=== PATIENT | female | born 2000 | race Caucasian/White ===

== ENCOUNTER 2023-12-15 21:15 | Outpatient (REF) | payer OTHER, SELFPAY | END 2023-12-15 21:16 | disposition home or self-care (01) | LOC: LAB 21:15 | PROVIDERS: Visit Provider Physician Assistant | DX: Z01.419 Encounter for gynecological examination (general) (routine) without abnormal findings (principal) | CPT/HCPCS: G0145 ==

== ENCOUNTER 2024-12-20 19:54 | Outpatient (REF) | payer OTHER, SELFPAY ==
--- OUTSIDE RECORDS SUMMARY | 2024-12-20 20:02 | XMS_ITS | CCD ---
Author Organization [facility] Care Team Providers Care Dexigraph Operator Name Role Phone Jose David Sadler Primary Care Provider PILAR VILLAFUERTE Attending Unav ailable JOSE DAVID SADLER Primary Care Unavailable PILAR VILLAFUERTE Attending Unav JOSE DAVID Cruz Primary Care Unavailable JOSE DAVID SADLER Admitting Unavailable PILAR VILLAFUERTE Attending Unav JOSE DAVID Cruz Referring Unavailable JOSE DAVID SADLER. Primary Care Unavailable PILAR VILLAFUERTE Attending Unav ailable JOSE DAVID SADLER Primary Care Unavailable ANA, ANA Attending Unavailable ANA LAGUNA Consulting Unavailable ANA ANA Admitting Unavailable [place] Primary Care Provider Arjun Woodall Unavailable Ana Laguna Primary Care Provider JOSE DAVID SADLER Referring Unavailable RICODOMEE Deb Primary Care Unavailable SUSAN, TOD Attending Unavailable ROSIPKO, JOSE DAVID K Referring Unavailable RICO, KIMBERLY G Primary Care Unavailable ANA, ANA F Primary Care Unavailable SUSAN, TOD Referring Unavailable ANA, ANA F Primary Care Unavailable SUSAN, TOD Referring Unavailable ANA, ANA F Primary Care Unavailable SUSAN, TOD Referring Unavailable ANA, ANA F Primary Care Unavailable SUSAN, TOD Referring Unavailable ANA, ANA F Primary Care Unavailable SUSAN, TOD Referring Unavailable ANA, ANA F Primary Care Unavailable SUSAN, TOD Referring Unavailable ANA, ANA F Primary Care Unavailable SUSAN, TOD Referring Unavailable ANA LAGUNA Primary Care Unavailable CANDIS DAVIS Referring Unavailable Jennifer Pastrana MD Primary Care Provider Lizeth Emanuel NP Unavailable Cyndy De La Torre Unavailable ELMER CHARLES Attending Unavailab CYNDY De Jesus Attending Unavailable ILNAA CADET Attending Unavailable JONATAN PADILLA Attending Unavailable ILNAA CADET Referring Unavailable KIMBERLY RANDOLPH Primary Care Unavailable Kimberly Randolph DO Primary Care Provider Allergies Allergy Classification Reported Allergen(s) Allergy Type Date of Onset Reaction(s) Facility (7 sources) Gluten Allergy to substance 3 Rash [facility] (7 sources) Octacosanol Propensity to adverse reactions 4 Runny nose, Other (See Comments) [facility] Medications Current Medications Medication Drug Class(es) Dates Sig (Normalized) Sig (Original) adapalene 0.003 mg/mg topical gel (8 sources) Retinoid Start: 2023 adapalene (Differin) 0.3 % gel USE 1 APPLICATION TOPICALLY EVERY NIGHT AT BEDTIME 2023 Active [id number] 200 actuat albuterol 0.09 mg/actuat metered dose inhaler (14 sources) beta2-Adrenergic Agonist take 2 puff(s) by inhalation every four hours for wheezing albuterol HFA 90 mcg/act inhaler Inhale 2 puffs every 4 (four) hours if needed for wheezing Active take 2 puff(s) by in halation every six hours as needed for wheezing albuterol (PROVENTIL HFA;VENTOLIN HFA) 9 0 mcg/actuation inhaler Inhale 2 puffs every 6 (six) hours as needed for wheezing. Active citric acid 75 mg/ml / magnesium oxide 21.9 mg/ml / picosulfate sodium 0.0625 mg/ml oral solution (2 sources) Calculi Dissolution Agent, Anti-coagulant Start: 04-23-2021 Clenpiq 10-3.5-12 MG-GM -GM/160ML 160ml at 3pm, 160ml at 9pm the day prior to colonoscopy Orally BID for 1 days Mar, Active Ethinyl Estradiol / norgestimate (16 sources) Progestin, Estrogen Start: 12-20-2024 End: 12-20-2025 take 1 tablet by mouth once daily norgestimate-ethi nyl estradiol (Tri-Sprintec) 0.18/0.215/0.25 MG-35 MCG tablet Indications: Encounter for control pills maintenance Take 1 tablet by mouth 1 (one) time each day at the same time 90 tablet 3 12/20/2024 12/20/2025 Active Start: 12-15-2023 End: 12-20-2024 take 1 tablet by mouth once daily norgestimate-ethinyl estradiol (Tri-Sprintec) 0.18/0.215/0.25 MG-35 MCG tablet Indications: Encounter for control pills maintenance Take 1 tablet by mouth 1 (one) time each day at the same time 90 tablet 3 12/15/2023 12/20/2024 Discontinued (Reorder) Start: 12-15-2023 take 1 tablet by zhane once daily norgestimate-ethinyl estradiol (Tri-Sprintec) 0.18/0.215/0.25 MG-35 MCG tablet Indications: Encounter for control pills maintenance Take 1 tablet by mouth 1 (one) time each day at the same time 90 tablet 3 12/15/2023 Active Start: 12-15-2023 End: 12-14-2024 take 1 tablet by mouth once daily norgestimate-ethinyl estradiol (Tri-Sprintec) 0.18/0.215/0.25 MG-35 MCG tablet Indications: Encounter for control pills maintenance Take 1 tablet by mouth 1 (one) time each day at the same time 90 tablet 3 12/15/2023 12/14/2024 Active Start: 11-14-2019 TRI-SPRINTEC, 28, 0.18/0.215/0.25 mg-35 mcg (28) per tablet 11/14/2019 Active Start: 11-14-2019 TRI-SPRINTEC, 28, 0.18/0.215/0.25 mg-35 mcg (28) per tablet Start: 08-10-2019 take 1 tablet by zhane th once daily Tri-Sprintec, 28, 0.18/0.215/0.25 mg-35 mcg (28) per tablet Take 1 Tabminder by mouth daily . 0 08/10/2019 Active naloxone hydrochloride 40 mg/ml nasal spray (2 sources) Opioid Antagonist Start: 07-08-2023 naloxone (NARCAN) 4 mg/actuation spray,non-aerosol nasal spray Administer 1 spray (4 mg total) into alternating nostrils as needed for opioid reversal. 1 each 0 07/08/2023 Active naloxone (NARCAN) 4 mg/actuation spray,non-aerosol nasal spray (3 sources) Start: 07-08-2023 naloxone (NARCAN) 4 mg/actuation spray,non-aerosol nasal spray Administer 1 spray (4 mg total) into alternating nostrils as needed for opioid reversal. 1 each 07/08/2023 Active NONFORMULARY (2 sources) take 1 tablet by mouth once daily NONFORMULARY Take 1 tablet by mouth daily unkown control pill 0 Active Completed/Discontinued Medications Medication Drug Class(es) Dates Sig (Normalized) Sig (Original) azithromycin 500 mg oral tablet (7 sources) Macrolide Antimicrobial Start: 12-16-2023 End: 12-20-2024 take 1 tablet by mouth once daily azithromycin (Zithromax) 500 MG tablet Indications: Bacterial infection due to mycoplasma Day 1: Take 2 tablets PO onetime dose; Day 2,3,4: Take 1 tablet daily 5 tablet 12/16/2023 12/20/2024 Discontinued (Other) fluconazole 100 mg oral tablet (7 sources) Azole Antifungal Start: 12-15-2023 End: 12-20-2024 fluconazole (Diflucan) 100 MG tablet Indications: Yeast infection Take 1 tab by mouth today. Repeat in 48 hours. 2 tablet 12/15/2023 12/20/2024 Discontinued (Other) 60 actuat fluticasone propionate 0.25 mg/actuat / salmeterol 0.05 mg/actuat dry powder inhaler (7 sources) Corticosteroid, beta2-Adrenergic Agonist Start: 11-29-2023 End: 12-20-2024 take 1 puff(s) by inhalation in the morning Fluticasone-Salmet isha (Advair Diskus) 250-50 MCG/ACT aerosol powder Indications: Mild intermittent asthma without complication (CMS/HCC) Inhale 1 puff in the morning and 1 puff before bedtime. 60 each 1 11/29/2023 12/20/2024 Discontinued (Other) metoprolol tartrate 25 mg oral tablet (5 sources) beta-Adrenergic Jahaira Start: 05-30-2024 End: 12-20-2024 take 1 tablet by mouth in the morning metoprolol tartrate (Lopressor) 25 MG tablet Indications: PVC (premature ventricular contraction) Take 1 tablet (25 mg) by mouth in the morning and 1 tablet (25 mg) before bedtime. 180 tablet 05/30/2024 12/20/2024 Discontinued (Other) Problems Active Problems Problem Classification Problem Date Documented Da te Episodic/Chronic Abdominal pain (4 sources) Abdominal pain; Translations: [Unspecified abdominal pain] Onset: 04-23-2021 Resolved: 04-23-2021 Episodic Allergic reactions (7 sources) Flexural eczema; Translations: [Flexural eczema] Onset: 05-03-2023 05-03-2023 Chronic Cardiac dysrhythmias (3 sources) Ventricular premature depolarization; Translations: [Multiple premature ventricular complexes] Onset: 07-06-2024 07-06-2024 Chronic Conditions associated with dizziness or vertigo (6 sources) Dizziness; Translations: [Dizziness and giddiness] Onset: 07-06-2024 05-17-2024 Episodic Contraceptive and procreative management (2 sources) Oral contraception status; Translations: [Encounter for surveillance of contraceptive pills] 12-20-2024 Episodic Genitourinary symptoms and ill-defined conditions (7 sources) Urinary incontinence; Translations: [Other specified urinary incontinence] Onset: 05-03-2023 05-03-2023 Chronic Immunizations and screening for infectious disease (4 sources) Contact with and (suspected) exposure to other viral communicable diseases; Translations: [CONTCT EXPS OTH VIRL COMMUNICABL DZ] Onset: 06-15-2020 Episodic Menstrual disorders (7 sources) Menometrorrhagia; Translations: [Excessive and frequent menstruation with irregular cycle] Onset: 05-03-2023 05-03-2023 Chronic Other disorders of stomach and duodenum (2 sources) Indigestion; Translations: [Functional dyspepsia] Episodic Other gastrointestinal disorders (10 sources) Irritable bowel syndrome; Translations: [Irritable bowel syndrome without diarrhea] Onset: 05-03-2023 05-03-2023 Chronic Other gastrointestinal disorders (1 source) Celiac disease; Translations: [Celiac disease] Chronic Other gastrointestinal disorders (1 source) Irritable bowel syndrome without diarrhea Onset: 02-09-2022 Resolved: 02-09-2022 Chronic Other gastrointestinal disorders (1 source) Celiac disease Onset: 02-09-2022 Resolved: 02-09-2022 Chronic Other gastrointestinal disorders (3 sources) Altered bowel function; Translations: [Change in bowel habit] Episodic Other nervous system disorders (7 sources) Chronic pain; Translations: [Other chronic pain] Onset: 05-03-2023 05-03-2023 Chronic Other nervous system disorders (2 sources) Paresthesia of lower extremity; Translations: [Paresthesia of lower extremity] Episodic Other nutritional; endocrine; and metabolic disorders (7 sources) Intolerance to lactose; Translations: [Lactose intolerance, unspecified] Onset: 05-03-2023 05-03-2023 Chronic Other nutritional; endocrine; and metabolic disorders (3 sources) Weight loss; Translations: [Abnormal weight loss] Episodic Other upper respiratory disease (7 sources) Chronic rhinitis; Translations: [Chronic rhinitis] Onset: 05-03-2023 05-03-2023 Chronic Residual codes; unclassified (1 source) Other specified postprocedural states; Translations: [Other specified postprocedural states] Onset: 07-22-2023 Episodic Spondylosis; intervertebral disc disorders; other back problems (20 sources) Other intervertebral disc displacement, lumbar region; Translations: [Lumbar spondylosis] Onset: 02-01-2020 Chronic Unclassified (1 source) Suture / Staple Removal Onset: 07-22-2023 Unclassified (1 source) New Patient Onset: 07-06-2024 Past or Other Problems Problem Classification Problem Date Documented Da te Episodic/Chronic Other disorders of stomach and duodenum (2 sources) Functional dyspepsia Onset: 05-30-2021 Resolved: 02-09-2022 Episodic Other gastrointestinal disorders (1 source) Change in bowel habit; Translations: [Change in bowel habits R19.4] Onset: 04-23-2021 Resolved: 04-23-2021 Episodic Other gastrointestinal disorders (7 sources) Constipation; Translations: [Constipation, unspecified] Onset: 05-03-2023 05-03-2023 Episodic Other nervous system disorders (7 sources) Paresthesia of left lower limb; Translations: [Paresthesia of skin] Onset: 05-03-2023 05-03-2023 Episodic Other nutritional; endocrine; and metabolic disorders (1 source) Abnormal weight loss; Translations: [Weight loss R63.4] Onset: 04-23-2021 Resolved: 04-23-2021 Episodic Residual codes; unclassified (1 source) History of lumbar discectomy; Translations: [Other specified postprocedural states] 07-22-2023 Episodic Skin and subcutaneous tissue infections (7 sources) Impetigo; Translations: [Impetigo, unspecified] Onset: 05-03-2023 05-03-2023 Episodic Spondylosis; intervertebral disc disorders; other back problems (20 sources) Spinal stenosis, lumbar region without neurogenic claudication; Translations: [Acute back pain with sciatica] Onset: 03-20-2020 Episodic Results Test Name Value Interpretation Reference Range Facility POCT EKGon 07-06-2024 [facility] MR LUMBAR SPINE WO CONTRASTo n 05-21-2023 MR LUMBAR SPINE WO CONTRAST EXAM: MR LUMBAR SPINE WO CONTRAST History: Low back pain Technique: Multiplanar multisequence MRI of the lumbar spine was obtained without intravenous contrast. Comparison: MRI of the lumbar spine August 15, 2019 Findings: The conus medullaris ends normally. The alignment of the lumbar spine is anatomic. The vertebral body heights are well maintained. There is no aggressive bone marrow signal abnormality. Disc desiccation and mild intervertebral height loss at L4-L5. T11-T12: Tiny left central disc protrusion without significant change. No neural foraminal or spinal canal stenosis. T12-L1: No significant disc bulge. No neural foraminal or spinal canal stenosis. L1-L2: No significant disc bulge or high-grade spinal canal or neuroforaminal stenosis. L2-L3: No significant disc bulge or high-grade spinal canal or neuroforaminal stenosis. L3-L4: Small disc bulge. No neural foraminal or spinal canal stenosis. L4-L5: Small disc bulge with superimposed central disc protrusion. Mild facet arthropathy and ligamentum flavum thickening. Moderate spinal canal stenosis. Moderate bilateral neural foraminal stenosis. L5-S1: Small disc bulge with tiny central disc protrusion. Mild facet arthropathy. Moderate bilateral neural foraminal stenosis. No spinal canal stenosis. Visualized paravertebral soft tissues appear within normal limits. IMPRESSION: Degenerative changes of the lumbar spine as detailed, progressed from prior examination. ELECTRONICALLY SIGNED BY: Tono Patterson DO Normal Not Available HCG,Urineon 05-22-2021 Beta HCG ( test) Ql (U) Negative Normal [facility] Comment on above: Result Comment: PERFORMED BY: [place] [address] PATHOLOGIST WINDOWS SOFTWARE ENGINEER OTILIA BRIGHT M.D. Performed By: #### U HCG #### [facility] [address] 05-22-2021 L -- ---- Specimen: [id number] Received: 05/22/21 Status: TODD Amador Num: [id number] Spec Type: Surgical Subm Dr: Arjun Woodall MD Tissues: A Small Intestine - Biopsy/Polyp (SMALL BOWEL BX) Procedures: HE Stain/2, Gross/Micro L4 ---- Patient Age/Sex Location Account Attending Physician ---- Aranza Doyle 20/F [id number] Arjun Woodall MD ---- SPEC NUM: [id number] RECD: 05/22/21 STATUS: TODD AMADOR NUM: [id number] YAKOV: 05/22/21 DR: Arjun Woodall MD ENTERED: 05/22/21 [facility] [place]: SPEC TYPE: Surgical DEPT: S ENTERED BY: [id number] RECV BY: [id number] ORDERED: HE Stain/2, Gross/Micro L4 ORDERED: HE Stain/2, Gross/Micro L4 Pathological Diagnosis Small bowel, biopsy: - Small bowel mucosa with slightly edematous lamina propria containing lymphoplasmacytic cell infiltrate. - Mild to moderate variability of villi is noted in association with mild intraepithelial lymphocytosis, without definitive damage of the tips. See comment. Comment: There is no evidence of acute or granulomatous inflammation, drop off the crypts, dysplasia or malignancy. Up to 2-3 lymphocytes per 10 enterocytes are identified. Clinical correlation with serologic tests results for celiac sprue disease is recommended. Clinical Information Change in bowel habits Gross Description Received in formalin labeled with the patient's name, number and small bowel rule out celiac are 3 pink tissue fragments, 0.1 cm to 0.3 cm. Entirely submitted in one cassette labeled A1. (SM/NM) ---- Specimen: [id number] Received: 05/22/21 Status: TODD Amador Num: [id number] Spec Type: Surgical Subm Dr: Arjun Woodall MD Tissues: A Small Intestine - Biopsy/Polyp (SMALL BOWEL BX) Procedures: HE Stain/2, Gross/Micro L4 ---- Patient: Aranza Doyle [id number] (Continued) ---- Specimen: [id number] Received: 05/22/21 (Continued) Signed (signature on file) Karen Goss MD 05/23/21 1511 ---- Specimen: [id number] Received: 05/22/21 Status: TODD Amador Num: [id number] Spec Type: Surgical Subm Dr: Arjun Woodall MD Tissues: A Small Intestine - Biopsy/Polyp (SMALL BOWEL BX) Procedures: HE Stain/2, Gross/Micro L4 ---- Patient: Aranza Doyle [id number] (Continued) ---- Specimen: [id number] Received: 05/22/21 (Continued) Microscopic Description One glass slide with H E stained material has been examined. The microscopic findings support the above pathologic diagnosis. CPT Codes 60091 ---- ---- Specimen: [id number] Received: 05/22/21 Status: TODD Amador Num: [id number] Spec Type: Surgical Subm Dr: Arjun Woodall MD Tissues: A Small Intestine - Biopsy/Polyp (SMALL BOWEL BX) Procedures: HE Stain/2, Gross/Micro L4 ---- Patient: Aranza Doyle [id number] (Continued) ---- Signed (signature on file) Karen Goss MD 05/23/21 1511 Normal [facility] COVID-19 [facility] 05-05-2021 SARS-CoV-2 (COVID-19) RNA ARABELLA+probe Ql (Unsp spec) Positive Critically abnormal Negative [facility] Comment on above: Order Comment: Results called at 0827 on 05/06/21. Healthcare Worker?: N Result Comment: Positive results will only be called to Providers for the following groups of patients: Pre-Surgical Testing, Emergency Room, and Inpatients. Testing for SARS-CoV-2 by RT-PCR This test was developed and its performance characteristics determined by [employer]) and validated at the [facility]. This test has not been FDA cleared or approved. This test has been authorized by FDA under an Emergency Use Authorization (EUA). This test has been validated in accordance with the FDA's Guidance Document (Policy for Diagnostics Testing in Laboratories Certified to Perform High Complexity Testing under CLIA prior to Emergency Use Authorization for Coronavirus Disease-2019 during the Public Health Emergency) issued on October 26, 2019. This test is only authorized for the duration of time the declaration that circumstances exist justifying the authorization of the emergency use of in vitro diagnostic tests for detection of SARS-CoV-2 virus and/or diagnosis of COVID-19 infection under section 564(b)(1) of the Act, 21 U.S.C. 360bbb-3(b)(1), unless the authorization is terminated or revoked sooner. PERFORMED BY: [facility] [address] [place] [address] PATHOLOGIST WINDOWS SOFTWARE ENGINEER OTILIA BRIGHT M.D. Performed By: #### C OVID 19 [facility] [place] #### [facility] [address] COVID-19 PCRon 06-17-2020 SARS-CoV-2, ARABELLA Not Detected Normal Not Detected [facility] Comment on above: Result Comment: This nucleic acid amplif ication test was developed and its performance characteristics determined by [employer]. Nucleic acid amplification tests include PCR and TMA. This test has not been FDA cleared or approved. This test has been authorized by FDA under an Emergency Use Authorization (EUA). This test is only authorized for the duration of time the declaration that circumstances exist justifying the authorization of the emergency use of in vitro diagnostic tests for detection of SARS-CoV-2 virus and/or diagnosis of COVID-19 infection under section 564(b)(1) of the Act, 21 U.S.C. 360bbb-3(b) (1), unless the authorization is terminated or revoked sooner. When diagnostic testing is negative, the possibility of a false negative result should be considered in the context of a patient's recent exposures and the presence of clinical signs and symptoms consistent with COVID-19. An individual without symptoms of COVID-19 and who is not shedding SARS-CoV-2 virus would expect to have a negative (not detected) result in this assay. Performed By: #### C VDPCR #### [facility] [address] [address] Yfn Le MR SPINE LUMBAR WITHOUT CONT [facility] 04-12-2020 MR SPINE LUMBAR WITHOUT CONTRAST DICTATED: 04/12/2020 10:09 AM REASON FOR EXAM: Chronic, left-sided low back pain. TECHNIQUE: Noncontrast images of the lumbar spine were performed. COMPARISON: Outside foreign reference August 15, 2019 FINDINGS: Vertebra: In the supine position there is normal spinal alignment. The vertebral bodies maintain a normal height and shape and there is normal bone marrow signal. Discs: At L4-5 there is subtle disc desiccation without significant loss of disc height. Disc material protrudes posteriorly by approximately 4 mm, central and left paracentral, elevating the posterior longitudinal ligament and effacing the ventral thecal sac. It comes into contact with the budding L5 nerve roots. There is no lateral extension. The remaining disc spaces and heights are maintained. Canal: The spinal canal is of adequate dimension. Cord: Assuming the first angled disc space is L5-S1 and counting superiorly, the conus terminates at L1 level. The distal spinal cord shows normal signal. No intraspinal mass, syrinx or tethering lesion is seen. Posterior elements (which includes the pars interarticularis): Intact. SI joints are symmetric and show no signal abnormality. Soft tissues: The surrounding soft tissues are normal in appearance. 2 kidneys are identified in normal position. There is no hydronephrosis. IMPRESSION: L4-5 central and left paracentral disc protrusion appears similar to the July 2019 exam, without evidence of progression. Interpreted by: Katelyn Breaux MD Signed by: Katelyn Breaux MD on 04/12/2020 10:26 AM Normal [facility] [id number] RNA by PCR, [facility] 11-26-2019 [id number] RNA by PCR Not Detected Normal Not Detected [facility] Comment on above: Order Comment: COVID 19 [facility] Result Comment: Miss ing Attachment Chartable Reference Lab Reports Can be viewed in source system Performed By: #### C [id number] #### [place] [address] Family Medicine Office/Clini c Noteon 2019 Family Medicine Office/Clinic Note Chief Complaint C/O body aches, fever 101.2, chills, H/A, decreased appetite History of Present Illness Patient started with mild sxs of cough and congestion 5 days ago Has history of asthma, then began with fever and headache with fatigue and sore throat last night with body aches Works at [employer] thru Did Telehealth with primary care Physician and sent over for covid testing Headache is pretty bad not sinus but more al over Review of Systems General Adult ROS Fatigue: Yes Appetite change: Yes Weakness: Yes Weight gain: No Weight Loss: No Cardiovascular Chest pain/pressure: No EENMT Gastrointestinal Diarrhea: No Nausea: Yes Vomiting: No Genitourinary Hematologic/Lymphatic Musculoskeletal Neurological Psychiatric Respiratory Cough: No Shortness_of_breath: Yes fromasthma Sputum production: No Wheezing: Yes Skin Physical Exam Vitals & Measurements HT: 155 cm WT: 68.0 kg BMI: 28.3 Child alert and in no acute distress Resps easy and even TM's mild erythema, posterior pharynx mild erythema no exudate. Nares clear rhinorrhea Neck supple Heart reg with no murmur Lungs diminished with expiratory wheeze, no rales or areas of consolidation. Additional Vitals No qualifying data available. Assessment/Plan 1. Asthma use inhaler for wheezing as directed 2. Fever Treat with Tylenol with lots of fluids 3. Cough Covid swab done If negative and fever remains take ZPACK Call Primary care Dr on Wednesday with update on how feeling Orders: azithromycin, 1 packets, Oral, As Indicated, as directed on package labeling, X 5 days, # 6 tabs, 0 Refill(s), 11/29/19 14:07:00 EDT, Pharmacy: [facility]/pharmacy #[id number] Problem List/Past Medical History Ongoing Asthma Historical No qualifying data Medications albuterol Allergies No Known Medication Allergies Social History Tobacco Never (less than 100 in lifetime) Use:. Diagnostic Results No qualifying data available (XRay) No qualifying data available (CT) No qualifying data available (Ultrasound) No qualifying data available (MRI) Electronically signed by Cherry Miguel 11/24/19 14:24 EDT Temp: 38.3; PULSE: 102; BP 115/77 P.O. 99% Electronically signed by Cherry Miguel 11/24/19 14:48 EDT Normal [facility] Vital Signs Date Time Vital Sign Value Performing Clinician Facility 12-20-2024 15:07-0400 Body mass index (BMI) [Ratio] 27.66 kg/m2 Cyndy MEDRANO Work Phone: [facility] 12-20-2024 15:07-0400 Body weight 66.41 kg Cyndy MEDRANO Work Phone: [facility] 12-20-2024 15:07-0400 Diastolic blood pressure 68 mm[Hg] Cyndy MEDRANO Work Phone: [facility] 12-20-2024 15:07-0400 Systolic blood pressure 110 mm[Hg] Cyndy MEDRANO Work Phone: [facility] 07-06-2024 13:01-0500 Body height 154.9 cm Jonatan Padilla MD Work Phone: [facility] 07-06-2024 13:01-0500 Body mass index (BMI) [Ratio] 26.94 kg/m2 Jonatan Padilla MD Work Phone: [facility] 07-06-2024 13:01-0500 Body weight 64.68 kg Jonatan Padilla MD Work Phone: [facility] 07-06-2024 13:01-0500 Diastolic blood pressure 68 mm[Hg] Jonatan Padilla MD Work Phone: [facility] 07-06-2024 13:01-0500 Heart rate 72 /min Jonatan Padilla MD Work Phone: [facility] 07-06-2024 13:01-0500 SaO2% (BldA) [Mass fraction] 100 % Jonatan Padilla MD Work Phone: [facility] 07-06-2024 13:01-0500 Systolic blood pressure 96 mm[Hg] Jonatan Padilla MD Work Phone: [facility] 05-17-2024 15:40-0400 Diastolic blood pressure 80 mm[Hg] Ilana Cadet NP Work Phone: [facility] 05-17-2024 15:40-0400 Systolic blood pressure 118 mm[Hg] Ilana Cadet HOME COORDINATOR Work Phone: [facility] 05-17-2024 15:36-0400 Body height 154.9 cm Ilana Cadet HOME COORDINATOR Work Phone: [facility] 05-17-2024 15:36-0400 Body mass index (BMI) [Ratio] 26.64 kg/m2 Ilana Cadet HOME COORDINATOR Work Phone: [facility] 05-17-2024 15:36-0400 Body weight 63.96 kg Ilana Cadet HOME COORDINATOR Work Phone: [facility] 05-17-2024 15:36-0400 Heart rate 81 /min Ilana Cadet HOME COORDINATOR Work Phone: [facility] 05-17-2024 15:36-0400 Respiratory rate 18 /min Ilana Cadet HOME COORDINATOR Work Phone: [facility] 05-17-2024 15:36-0400 SaO2% (BldA) [Mass fraction] 98 % Ilana Cadet HOME COORDINATOR Work Phone: [facility] 08-06-2023 12:34-0500 Body height 154.9 cm Candis Davis MD Work Phone: [facility] 08-06-2023 12:34-0500 Body mass index (BMI) [Ratio] 26.64 kg/m2 Candis Davis MD Work Phone: [facility] 08-06-2023 12:34-0500 Body weight 63.96 kg Candis Davis MD Work Phone: [facility] [employer] 02-09-2022 14:15-0400 Body height 154.94 cm rAjun Woodall Other [facility] Other 02-09-2022 14:15-0400 Body mass index (BMI) [Ratio] 26.64 kg/m2 Arjun Woodall Other [facility] Other 02-09-2022 14:15-0400 Body weight 63.96 kg Arjun Núñezy Other [facility] Other 02-09-2022 14:15-0400 Diastolic blood pressure 71 mm[Hg] Arjun Ditty Other [facility] Other 02-09-2022 14:15-0400 Systolic blood pressure 110 mm[Hg] Arjun Ditty Other [facility] Other 04-23-2021 16:15-0400 Body height 154.94 cm Arjun Núñezy Other [facility] Other 04-23-2021 16:15-0400 Body mass index (BMI) [Ratio] 26.64 kg/m2 Arjun Núñezy Other [facility] Other 04-23-2021 16:15-0400 Body weight 63.96 kg Arjun Núñezy Other [facility] Other 04-23-2021 16:15-0400 Diastolic blood pressure 68 mm[Hg] Arjun Ditty Other [facility] Other 04-23-2021 16:15-0400 Systolic blood pressure 104 mm[Hg] Arjun Ditty Other [facility] Other 05-31-2020 13:06-0500 BMI (Body Mass Index) 28.34 kg/m2 Pilar Villafuerte [facility] 05-31-2020 13:06-0500 Body weight 68.04 kg Pilar Villafuerte [facility] 05-31-2020 13:06-0500 Height 154.9 cm Pilar [facility] 08-22-2019 14:48-0500 BMI (Body Mass Index) 28.34 kg/m2 [facility] 08-22-2019 14:48-0500 Body weight 68.04 kg [facility] 08-22-2019 14:48-0500 Height 154.9 cm Pilar [facility] Encounters Encounter Date Encounter Type Care Provider Facility Start: 12-20-2024 End: 12-20-2024 Patient encounter procedure Cyndy MEDRANO Work Phone: [facility] Work Phone: Start: 12-20-2024 End: 12-20-2024 Periodic preventive med est patient 18-39 yrs Cyndy MEDRANO Work Phone: [facility] Comment on above: Well woman exam with routine gynecological exam; Encounter for control pills maintenance Start: 12-20-2024 End: 12-20-2024 Bamboo flowsheet Cyndy MEDRANO Work Phone: [facility] Start: 12-20-2024 End: 12-20-2024 Bamboo flowsheet Cyndy MEDRANO Work Phone: [facility] Start: 07-06-2024 End: 07-06-2024 Office outpatient new 45 minutes Jonatan Padilla MD Work Phone: [facility] Comment on above: PVC (premature ventr icular contraction) (Primary Dx); Dizziness Start: 07-06-2024 End: 07-06-2024 ambulatory [facility] Start: 07-05-2024 End: 07-05-2024 Telephone encounter [facility] Start: 06-30-2024 End: 06-30-2024 Chart abstracting Jonatan Padilla MD [facility] Start: 05-30-2024 End: 07-24-2024 Telephone encounter Jennifer Pastrana MD Work Phone: [facility] Start: 05-29-2024 End: 05-29-2024 Telephone encounter Jennifer Pastrana MD Work Phone: [facility] Start: 05-17-2024 End: 05-17-2024 Office outpatient visit 25 minutes Ilana Cadet HOME COORDINATOR Work Phone: [facility] Comment on above: Dizziness (Primary D x) Start: 05-17-2024 End: 05-17-2024 ambulatory ILANA CADET Not Available Start: 12-15-2023 End: 12-15-2023 ambulatory CYNDY PERDOMO Not Available Start: 11-29-2023 End: 11-29-2023 ambulatory ELMER A ARACELI Not Available Start: 08-12-2023 End: 08-13-2023 ambulatory [facility] Start: 08-10-2023 End: 08-11-2023 ambulatory [facility] Start: 08-06-2023 End: 08-06-2023 ambulatory CANDIS DAVIS [facility] Start: 08-06-2023 End: 08-06-2023 Postop follow up visit related to original px Candis Daivs MD Work Phone: [facility] Comment on above: Herniated lumbar int ervertebral disc (Primary Dx) Start: 08-05-2023 End: 08-06-2023 [facility] Start: 08-03-2023 End: 08-04-2023 [facility] Start: 07-29-2023 End: 07-30-2023 ambulatory [facility] Start: 07-27-2023 ambulatory [facility] Start: 07-22-2023 End: 07-22-2023 ambulatory JOSE DAVID [facility] Start: 07-22-2023 End: 07-22-2023 Postop follow up visit related to original px [facility] Nurse [facility] Comment on above: S/P lumbar discectom y (Primary Dx) Start: 07-22-2023 End: 07-23-2023 ambulatory ANA LAGUNA [facility] Start: 07-22-2023 End: 07-22-2023 Subsequent hospital visit by physician Paul Viera PT [facility] Physical Therapy Comment on above: Arrived Start: 02-09-2022 End: 02-09-2022 ambulatory Arjun Aarticarmelitashereen Other [facility] Other Start: 02-09-2022 Patient encounter procedure Arjun Aarticarmelitay [facility] Start: 06-02-2021 End: 06-02-2021 Subsequent hospital visit by physician Ana Laguna Work Phone: [facility] Laboratory Start: 05-30-2021 End: 05-30-2021 ambulatory Arjun Aarticarmelitashereen Other [facility] Other Start: 05-30-2021 Telephone encounter Arjun Woodall [facility] Start: 04-23-2021 FQ visit new patient Arjun Broussardcarmelitay [facility] Start: 06-15-2020 End: 06-16-2020 Patient encounter procedure ANA LAGUNA Facility: Start: 05-31-2020 End: 05-31-2020 [facility] Start: 05-31-2020 End: 05-31-2020 Office outpatient visit 15 minutes Pilar Villafuerte Work Phone: [facility] Comment on above: Paresthesia of lower extremity (Primary Dx) Start: 05-14-2020 [facility] Start: 09-26-2019 [facility] Start: 08-22-2019 End: 08-22-2019 Patient encounter procedure JOSE DAVID SADLER [facility] Start: 08-22-2019 End: 08-22-2019 Office outpatient new 10 minutes Jose David Sadler Work Phone: [facility] Comment on above: Paresthesia of lower extremity Procedures Date Procedure Procedure Detail Performing Clinician Start: 07-06-2024 Ecg routine ecg w/le ast 12 lds w/i&r Jonatan Padilla MD Work Phone: Start: 08-06-2023 Follow-up visit Follow-up CANDIS DAVIS Start: 06-02-2021 Assay of gammaglobul in iga igd igg igm each Arjun Woodall Work Phone: Plan of Treatment Date Care Activity Detail Author Start: 07-06-2025 Adult BMI Screening Adult BMI Screening [facility] Start: 07-06-2025 Tobacco Screening Tobacco Screening [facility] Start: 03-26-2025 Influenza vaccination Influenza Vaccine (Season Ended) [facility] Start: 03-06-2025 DTaP,Tdap and Td Vaccines (7 - Td or Tdap) DTaP,Tdap and Td Vaccines (7 - Td or Tdap) [facility] Start: 03-06-2025 DTaP/Tdap/Td vaccine (7 - Td or Tdap) DTaP/Tdap/Td vaccine (7 - Td or Tdap) [facility] Start: 03-06-2025 Tetanus vaccination Tetanus: Every 10yrs [facility] Start: 03-06-2025 Tetanus, diphtheria and acellular pertussis vaccination DTAP Vaccines (7 - Td) [facility] Start: 12-20-2024 End: 12-20-2024 Patient encounter procedure 12/20/2024 3:00 PM EDT Office Visit [facility] [address] [place] [address] Cyndy Perdomo PA [address], [place] [address] Arrived [facility] Comment on above: Arrived Start: 12-19-2024 End: 12-19-2024 Patient encounter procedure 12/19/2024 10:00 AM EDT Office Visit [facility] [address] [place] [address] Cyndy Perdomo, PA [address], [place] [id number] [facility] Start: 08-06-2024 Adult BMI Screening Adult BMI Screening [facility] Start: 08-06-2024 Tobacco Screening Tobacco Screening [facility] Start: 07-08-2024 Adult BMI Screening Adult BMI Screening [facility] Start: 07-08-2024 Tobacco Screening Tobacco Screening [facility] Start: 07-06-2024 End: 07-06-2025 Echo complete W/O contrast Echo complete W/O contrast Echocardiography Routine PVC (premature ventricular contraction) Expected: 07/06/2024, Expires: 07/06/2025 [facility] Work Phone: Comment on above: Expected: 07/06/2024, Expires: Start: 07-06-2024 End: 07-06-2024 Patient encounter procedure 07/06/2024 1:30 PM EST Office Visit [facility] [address] [place] [address] Jonatan Padilla MD [address] [place] [address] [facility] Start: 05-17-2024 End: 05-17-2025 CBC W Auto Differential panel - Blood CBC and differential Lab Routine Dizziness Expected: 05/17/2024 (Approximate), Expires: 05/17/2025 [facility] Work Phone: Comment on above: Expected: 05/17/2024 (Approximate), Expi res: 05/17/2025 Start: 05-17-2024 End: 05-17-2025 Comprehensive metabolic 2000 panel - Serum or Plasma Comprehensive metabolic panel Lab Routine Dizziness Expected: 05/17/2024 (Approximate), Expires: 05/17/2025 [facility] Comment on above: Expected: 05/17/2024 (Approximate), Expi res: 05/17/2025 Start: 05-17-2024 End: 05-17-2025 Holter monitor study Holter monitor Imaging Routine Dizziness Expected: 05/17/2024 (Approximate), Expires: 05/17/2025 [facility] Comment on above: Expected: 05/17/2024 (Approximate), Expi res: 05/17/2025 Start: 05-17-2024 End: 05-17-2025 TSH W/REFLEX TO FT4 TSH W/REFLEX TO FT4 Lab Routine Dizziness Expected: 05/17/2024 (Approximate), Expires: 05/17/2025 [facility] Comment on above: Expected: 05/17/2024 (Approximate), Expi res: 05/17/2025 Start: 03-26-2024 COVID-19 Vaccine () COVID-19 Vaccine () [facility] Start: 03-26-2024 Influenza vaccination [facility] Start: 11-25-2023 Screening for malignant neoplasm of cervix Pap Smear [facility] Start: 09-02-2023 End: 09-02-2023 Patient encounter procedure 09/02/2023 9:30 AM EST Appointment [facility] Physical Therapy [address] [place], [place] [phone] Lance Foster, TANDEM OPERATOR [facility] Start: 08-31-2023 End: 08-31-2023 Patient encounter procedure 08/31/2023 9:15 AM EST Appointment [facility] Physical Therapy [address] [place] [phone] Lance Foster, TANDEM OPERATOR [facility] Start: 08-26-2023 ambulatory Ambulatory [facility] Start: 08-26-2023 End: 08-26-2023 Patient encounter procedure 08/26/2023 9:30 AM EST Appointment [facility] Physical Therapy [address] [place] [phone] Lance Foster TANDEM OPERATOR [facility] Physical [facility] Start: 08-24-2023 End: 08-24-2023 Patient encounter procedure 08/24/2023 10:00 AM EST Appointment [facility] Physical Therapy [address] [place] [phone] Lance Foster, TANDEM OPERATOR [facility] Physical [facility] Start: 08-19-2023 End: 08-19-2023 Patient encounter procedure 08/19/2023 9:45 AM EST Appointment [facility] Physical Therapy [address] [place] [phone] Tammy Ding PTA [facility] Start: 08-17-2023 End: 08-17-2023 Patient encounter procedure 08/17/2023 9:45 AM EST Appointment [facility] [address] [place] [phone] Tammy Ding PTA [facility] Start: 08-12-2023 End: 08-12-2023 Patient encounter procedure 08/12/2023 9:45 AM EST Appointment [facility] [address] [place] [phone] Tammy Ding PTA [facility] Start: 08-10-2023 End: 08-10-2023 Patient encounter procedure 08/10/2023 9:00 AM EST Appointment [facility] [address] [place] [phone] Tammy Ding PTA [facility] Start: 08-06-2023 End: 08-06-2023 Patient encounter procedure 08/06/2023 1:40 PM EST Office Visit [facility] [address] [place] [phone] Candis Davis MD [address] [place] [address] [address] [place] [phone] [facility] Start: 08-05-2023 End: 08-05-2023 Patient encounter procedure 08/05/2023 9:45 AM EST Appointment [facility] Physical [facility] [address] [place] [phone] Tammy Ding PTA [facility] Start: 08-03-2023 End: 08-03-2023 Patient encounter procedure 08/03/2023 9:00 AM EST Appointment [facility] [address] [place] [phone] Deloris Adams PTA [facility] Start: 07-29-2023 End: 07-29-2023 Patient encounter procedure 07/29/2023 9:45 AM EST Appointment [facility] [address] [place] [phone] Tammy Ding PTA [facility] Physical Therapy Start: 03-26-2023 COVID-19 Vaccine ( season) COVID-19 Vaccine ( season) [facility] Start: 03-26-2023 Influenza vaccination Influenza Vaccine [facility] Start: 02-23-2023 Influenza vaccination Flu vaccine (#1) [facility] Start: 03-26-2021 Influenza vaccination Flu vaccine (#1) [facility] Start: 2020 Adult BMI Follow Up Plan Adult BMI Follow Up Plan [facility] Start: 2020 Hepatitis C screening Hepatitis C screen [facility] Start: 03-26-2020 Influenza vaccination given Sequential Influenza Vaccine (#1) [facility] Start: 03-26-2019 Influenza vaccination given SEQUENTIAL INFLUENZA VACCINE (#1) [facility] Start: 2018 Meningococcal (ACWY) vaccine (1 - 2-dose series) Meningococcal (ACWY) vaccine (1 - 2-dose series) [facility] Start: 2018 Meningococcal conjugate vaccination Meningoccocal ACWY Vaccine (1 - 2-dose series) [facility] Start: 2018 Screening for Chlamydia trachomatis [facility] Start: 2017 HIV screening [facility] Start: 2014 COVID-19 Vaccine (1) COVID-19 Vaccine (1) [facility] Start: 2014 Depression Screen Depression Screen [facility] Start: 2014 Depression Screening Depression Screening [facility] Start: 2013 HPV vaccine (1 - 2-dose series) HPV vaccine (1 - 2-dose series) [facility] Start: 2013 Vaccination for human papillomavirus HPV VACCINES (1 - Female 2-dose series) [facility] Start: 2009 DTaP/Tdap/Td vaccine (1 - Tdap) DTaP/Tdap/Td vaccine (1 - Tdap) [facility] Start: 2009 Tetanus, diphtheria and acellular pertussis vaccination DTAP VACCINES (1 - Tdap) [facility] Start: 2005 History and physical examination, annual for health maintenance Wellness Visit [facility] Start: 11-25-2003 Hepatitis A immunization HEPATITIS A VACCINES (1 of 2 - 2-dose series) [facility] Start: 11-25-2003 Hepatitis A vaccine (1 of 2 - 2-dose series) Hepatitis A vaccine (1 of 2 - 2-dose series) [facility] Start: 11-25-2003 Measles,Mumps,Rubella (MMR) vaccine (1 of 2 - Standard series) Measles,Mumps,Rubella (MMR) vaccine (1 of 2 - Standard series) [facility] Start: 11-25-2003 Qgszpzm-xyaxd-jxahbzp vaccination MMR VACCINES (1 of 2 - Standard series) [facility] Start: 11-25-2003 Varicella vaccination VARICELLA VACCINES (1 of 2 - 2-dose childhood series) [facility] Start: 11-25-2003 Varicella vaccine (1 of 2 - 2-dose childhood series) Varicella vaccine (1 of 2 - 2-dose childhood series) [facility] Start: 01-24-2003 Inactivated poliovirus vaccine (product) IPV VACCINES (1 of 3 - 4-dose series) [facility] Start: 2002 Hepatitis B vaccination Hepatitis B Vaccines (1 of 3 - 3-dose primary series) [facility] Start: 2002 Hepatitis B vaccine (1 of 3 - 3-dose primary series) Hepatitis B vaccine (1 of 3 - 3-dose primary series) [facility] Start: 2002 Hepatitis C screening Hepatitis C screen [facility] Start: 2002 Screening for Chlamydia trachomatis Chlamydia Screening [facility] Start: 2002 Tetanus vaccination TETANUS EVERY 10 YR [facility] Celiac Disease Panel Celiac Dise ase Panel Lab Routine 06/02/2021 2:35 PM EST [facility] Work Phone: Cytology Cervical or vaginal smear or scraping study Pap Smear Pathology and Cytology Routine Well woman exam with routine gynecological exam Ordered: 12/20/2024 [facility] Work Phone: Comment on above: Ordered: 12/20/2024 Immunizations Immunization Date Immunization Notes Care Provider Morro martínez 04-25-2020 influenza virus vaccine, unspecified formulation [facility] Nurse [facility] 09-29-2018 human papilloma viru s vaccine, bivalent Ilana Cadet HOME COORDINATOR Work Phone: [facility] 03-24-2017 human papilloma viru s vaccine, bivalent Ilana Cadet HOME COORDINATOR Work Phone: [facility] 03-06-2015 tetanus toxoid, redu landry diphtheria toxoid, and acellular pertussis vaccine, adsorbed Ilana Cadet HOME COORDINATOR Work Phone: [facility] 03-06-2015 varicella virus vaccine Juliane Cadet HOME COORDINATOR Work Phone: [facility] 10-19-2007 diphtheria, tetanus toxoids and acellular pertussis vaccine Ilana Cadet HOME COORDINATOR Work Phone: [facility] 10-19-2007 measles, mumps and rubella virus vaccine Ilana Cadet HOME COORDINATOR Work Phone: [facility] 10-19-2007 poliovirus vaccine, inactivated Ilana Cadet HOME COORDINATOR Work Phone: [facility] 09-11-2004 diphtheria, tetanus toxoids and acellular pertussis vaccine Ilana Cadet HOME COORDINATOR Work Phone: [facility] 12-20-2003 haemophilus influenz ae type b vaccine, conjugate unspecified formulation Ilana Cadet HOME COORDINATOR Work Phone: [facility] 12-20-2003 measles, mumps and rubella virus vaccine Ilana Cadet HOME COORDINATOR Work Phone: [facility] 12-20-2003 pneumococcal conjuga te vaccine, 7 valent Ilana Cadet HOME COORDINATOR Work Phone: [facility] 12-20-2003 varicella virus vaccine Juliane Cadet HOME COORDINATOR Work Phone: [facility] 10-04-2003 pneumococcal conjuga te vaccine, 7 valent Ilana Cadet HOME COORDINATOR Work Phone: [facility] 08-02-2003 diphtheria, tetanus toxoids and acellular pertussis vaccine Ilana Cadet HOME COORDINATOR Work Phone: [facility] 08-02-2003 haemophilus influenz ae type b conjugate and Hepatitis B vaccine Ilana Cadet HOME COORDINATOR Work Phone: [facility] 08-02-2003 pneumococcal conjuga te vaccine, 7 valent Ilana Flanaganrubingina HOME COORDINATOR Work Phone: [facility] 08-02-2003 poliovirus vaccine, inactivated Ilana Cadet HOME COORDINATOR Work Phone: [facility] 04-26-2003 diphtheria, tetanus toxoids and acellular pertussis vaccine Ilana Cadet HOME COORDINATOR Work Phone: [facility] 04-26-2003 haemophilus influenz ae type b vaccine, conjugate unspecified formulation Ilana Cadet HOME COORDINATOR Work Phone: [facility] 04-26-2003 poliovirus vaccine, inactivated Ilana Cadet HOME COORDINATOR Work Phone: [facility] 02-22-2003 diphtheria, tetanus toxoids and acellular pertussis vaccine Ilana Flanaganpfer HOME COORDINATOR Work Phone: [facility] 02-22-2003 haemophilus influenz ae type b conjugate and Hepatitis B vaccine Ilana Cadet HOME COORDINATOR Work Phone: [facility] 02-22-2003 poliovirus vaccine, inactivated Ilana Cadet HOME COORDINATOR Work Phone: [facility] 2002 hepatitis B vaccine, pediatric or pediatric/adolescent dosage Ilana Cadet HOME COORDINATOR Work Phone: [facility] Payers Date Payer Category Payer Private Health Insurance [id number] 2016 Commercial Managed [facility] [employer] [id number] 2016 Unknown MMO MED MUTUAL S UPERMED PPO xxxxxxxxxxxx 2016-Present [id number] 2016 Unknown MMO [employer] M[employer] S UPERMED PPO [id number] 2016-Present [id number] 2016 Unknown [employer] M MO SUPERMED [id number] 2016-Present [phone] [address] [place] [address] [id number] 2002 Unknown [id number] [id number] .1286 2002 Unknown [id number] 2.16.840.1.936234.3.579.2 .1286 2002 Unknown [id number] 2.16.840.1.624063.3.579.2 .173 2002 Unknown [id number] 2.16.840.1.026726.3.579.2 .173 2002 Unknown [id number] 2.16.840.1.480036.3.579.2 .173 2002 Unknown [id number] 2.16.840.1.847221.3.579.2 .173 2002 Unknown [id number] 2.16.840.1.068079.3.579.2 .173 2002 Unknown [id number] 2.16.840.1.687224.3.579.2 .173 2002 Unknown [id number] 2.16.840.1.300185.3.579.2 .173 2002 Unknown [id number] 2.16.840.1.958205.3.579.2 .173 2002 Unknown [id number] 2.16.840.1.975244.3.579.2 .1259 2002 Unknown [id number] 2.16.840.1.566462.3.579.2 .1259 2002 Unknown [id number] 2.16.840.1.151922.3.579.2 .1259 2002 Unknown [id number] 2.16.840.1.116145.3.579.2 .1286 1967 Unknown [id number] 2.16.840.1.243163.3.579.2 .903 1967 Unknown [id number] 2.16.840.1.788989.3.579.2 .903 1967 Unknown [id number] 2.16.840.1.657764.3.579.2 .903 1967 Unknown [id number] 1965 Unknown [id number] 1957 Unknown [id number] Social History Date Type Detail Facility Start: 08-22-2019 End: 05-03-2023 Tobacco smoking status MOIS Never smoker [facility] Start: 08-22-2019 End: 07-06-2024 Alcohol intake Lifetime non-drinker (finding) [facility] Start: 08-22-2019 History SDOH Alcohol Frequency 1 [facility] Start: 2000 Sex Assigned At Not on file [facility] Start: 05-31-2020 End: 05-03-2023 Tobacco use and exposure Never used [facility] Exposure to SARS-CoV -2 (event) Not sure [facility] Start: 03-24-2017 Alcohol intake Current non-drinker of alcohol (finding) [employer] [facility]: Start: 05-15-2022 End: 05-17-2024 Sex Assigned At [facility] Start: 05-15-2022 End: 05-17-2024 History of Social function [facility] Start: 05-17-2024 Alcoholic beverage intake Current drinker of alcohol (finding) [facility] How often do you nee d to have someone help you when you read instructions, pamphlets, or other written material from your doctor or pharmacy [SILS] Never [facility] Within the last year , have you been afraid of your partner or ex-partner? No [facility] Do you belong to any clubs or organizations such as adventist groups, unions, fraternal or athletic groups, or school groups? Yes [facility] Are you now , , , , never or living with a partner? Never [facility] How often to you hav e a drink containing alcohol? 2-4 times a month [facility] How many standard dr inks containing alcohol do you have on a typical day? 1 or 2 [facility] How often do you hav e 6 or more drinks on 1 occasion? Never [facility] Do you feel stress - tense, restless, nervous, or anxious, or unable to sleep at night because your mind is troubled all the time - these days [OSQ] Only a little [facility] (I/We) worried wheth er (my/our) food would run out before (I/we) got money to buy more. Never true [facility] Start: 01-20-2023 Alcohol Comment caffeine: occasional [facility] Start: 05-26-2023 Sexual orientation Heterosexual (finding) [facility] Start: 02-28-2015 Sex Female (finding) [facility] Clinical Notes 04-23-2021 to 12-20-2024 Brandi Riley NP - 12/20/2024 3:00 PM Enriqueta Padilla MD - 07/06/2024 1:30 PM ESTPatient InstructionsTelephone Encounter - Jennifer Byers CMA - 07/05/2024 8:54 AM ESTPatient Instructions Note Date & Type Note Facility 12-20-2024 History of Presen t illness Narrative Reason for Appointment: Patient ID: Aranza Doyle is a 24 y.o. female who presents for [facility] Women Visit Patient presents today for Annual Exam. MEDICATIONS Current Outpatient Medications Medication Instructions adapalene (Differin) 0.3 % gel USE 1 APPLICATION TOPICALLY EVERY NIGHT AT BEDTIME albuterol HFA 90 mcg/act inhaler 2 puffs, Every 4 hours PRN norgestimate-ethinyl estradiol (Tri-Sprintec) 0.18/0.215/0.25 MG-35 MCG tablet 1 tablet, Oral, Every 24 hours ALLERGIES Allergies Allergen Reactions Gluten Meal Rash PROBLEMS Active Ambulatory Problems Diagnosis Date Noted Acute left-sided low back pain with left-sided sciatica 05/03/2023 Chronic rhinitis 05/03/2023 Constipation 05/03/2023 Disorder of sacrum 03/20/2020 Flexural eczema 05/03/2023 Frequent urinary incontinence 05/03/2023 Impetigo 05/03/2023 Irritable bowel syndrome 05/03/2023 Lactose intolerance 05/03/2023 Lumbar spondylosis 03/20/2020 Menorrhagia with irregular cycle 05/03/2023 Other chronic pain 05/03/2023 Other intervertebral disc displacement, lumbar region 02/01/2020 Paresthesia of left lower extremity 05/03/2023 Spinal stenosis of lumbar region 08/21/2020 Lumbar disc herniation with radiculopathy 05/28/2023 Resolved Ambulatory Problems Diagnosis Date Noted No Resolved Ambulatory Problems Past Medical History: Diagnosis Date Acute left otitis media Asthma (CMS/HCC) Chronic cough Reactive airways dysfunction syndrome, unspecified asthma severity, uncomplicated (CMS/HCC) stenosis L4-5, right L5-S1 Strep throat Tonsillitis HISTORY PAST MEDICAL HISTORY SOCIAL HISTORY Past Medical History: Diagnosis Date Acute left otitis media Asthma (CMS/HCC) Chronic cough Reactive airways dysfunction syndrome, unspecified asthma severity, uncomplicated (CMS/HCC) stenosis L4-5, right L5-S1 Strep throat Tonsillitis Social History Tobacco Use Smoking status: Never Smokeless tobacco: Never Substance Use Topics Alcohol use: Yes Alcohol/week: 2.0 standard drinks of alcohol Types: 2 Standard drinks or equivalent per week Comment: caffeine: occasional Drug use: Never FAMILY HISTORY Family History Problem Relation Name Age of Onset Other (reactive airways dysfunction syndrome) Mother Cyndy Domínguez Allergies Mother Cyndy Delgadoway Migraines Mother Cyndy Domínguez Depression Mother Cyndy Doímnguez Anxiety disorder Mother Cyndy Delgadoway Asthma Mother Cyndy Domínguez Other (parkinsons disease) Father Migraines Sibling SURGICAL HISTORY Past Surgical History: Procedure Laterality Date BACK SURGERY 06/2023 EPIDURAL BLOCK INJECTION 08/2020 L45 epidural EPIDURAL BLOCK INJECTION 01/01/2021 L4-5 block injection IR ABLATION 02/28/2021 ablation L 3/4, 4/5, 5/1 LUMBAR MEDIAL BRANCH BLOCK Left 03/29/2020 left L2-3-4 5 medial branch block LUMBAR MEDIAL BRANCH BLOCK Left 04/19/2020 Left L2,3,4,5 medial branch block IL INJ LUMBAR/SACRAL,W/WO CNTRST 02/2020 caudal epidural SPINE SURGERY 07/08 REVIEW OF SYSTEMS Review of Systems: Review of Systems Constitutional: Negative. HENT: Negative. Eyes: Negative. Respiratory: Negative. Cardiovascular: Negative. Gastrointestinal: Negative. Genitourinary: Negative. Musculoskeletal: Negative. Skin: Negative. Neurological: Negative. All other systems reviewed and are negative. Hematological: Negative. Endocrine: Negative. Allergic/Immunologic: Negative. OBJECTIVE Objective: Physical Exam Constitutional: Appearance: Normal appearance. She is well-developed. Genitourinary: Vulva normal. Breasts: Breasts are soft. Right: Normal. Left: Normal. Cardiovascular: Rate and Rhythm: Normal rate and regular rhythm. Pulmonary: Effort: Pulmonary effort is normal. Breath sounds: Normal breath sounds. Abdominal: General: Bowel sounds are normal. There is no distension. Palpations: Abdomen is soft. Tenderness: There is no abdominal tenderness. There is no guarding or rebound. Musculoskeletal: General: No swelling. Normal range of motion. Right lower leg: No edema. Left lower leg: No edema. Neurological: Mental Status: She is alert and oriented to person, place, and time. Skin: General: Skin is warm and dry. Psychiatric: Mood and Affect: Mood normal. Behavior: Behavior normal. Vitals and nursing note reviewed. Exam conducted with a benefits advisor present. Vitals: Estimated body mass index is 27.66 kg/m as calculated from the following: Height as of 05/17/24: 5' 1 . Weight as of this encounter: 146 lb 6.4 oz. BP: 110/68 No LMP recorded. ASSESSMENT & PLAN ICD-10-CM 1. Well woman exam with routine gynecological exam Z01.419 Pap Smear 2. Encounter for control pills maintenance Z30.41 norgestimate-ethinyl estradiol (Tri-Sprintec) 0.18/0.215/0.25 MG-35 MCG tablet Annual Exam: Patient presents today for an annual exam. Patient states she is doing well and has no complaints. Pap was obtained without difficulty. No orders of the defined types were placed in this encounter. Follow Up: Patient is to return in one year for annual unless needed otherwise. Documented by Brandi Riley NP on behalf of: MARCELA Frederick documented in this encounter [facility] 07-06-2024 History of Presen t illness Narrative Aranza Harrison Rosa Elenaallie Date of visit: 07/06/2024 Date of : 2000 Age: 23 y.o. Patient Active Problem List Diagnosis Disc displacement, lumbar Lumbar spondylosis Disorder of sacrum Lumbar disc displacement without myelopathy Spinal stenosis of lumbar region Herniated lumbar intervertebral disc Lumbar disc herniation with radiculopathy No Known Allergies Current Outpatient Medications Medication Sig Dispense Refill adapalene (DIFFERIN) 0.3 % gel Apply topically nightly. albuterol (PROVENTIL HFA;VENTOLIN HFA) 90 mcg/actuation inhaler Inhale 2 puffs every 6 (six) hours as needed for wheezing. metoprolol tartrate (LOPRESSOR) 25 mg tablet Take 1 tablet (25 mg total) by mouth in the morning and 1 tablet (25 mg total) before bedtime. TRI-SPRINTEC, 28, 0.18/0.215/0.25 mg-35 mcg (28) per tablet naloxone (NARCAN) 4 mg/actuation spray,non-aerosol nasal spray Administer 1 spray (4 mg total) into alternating nostrils as needed for opioid reversal. 1 each 0 No current facility-administered medications for this visit. Chief Complaint Patient presents with New Patient HOME COORDINATOR REFERRAL ILANA CADET PVC'S, DIZZINESS, HM [facility], LABS PCP, SCHED W/PT History of Present Illness 23-year-old female here for initial evaluation for dizziness and PVCs. Dizziness only orthostatic her blood pressure is soft, no syncope or presyncope She did have a Holter with a 1.85% PVC burden she did have 37 symptomatic events correlated essentially with everything. No smoking no illicit drug use no significant alcohol use Decreased her caffeine intake recently No significant cardiac family history no family history of early sudden Past Medical History: Diagnosis Date Asthma Chronic pain disorder Injury of back Low back pain No data recorded No data recorded No data recorded Past Surgical History: Procedure Laterality Date INJECTION BLOCK EPIDURAL STEROID LUMBAR/SACRAL L 4/5 ETHAN N/A 01/24/2021 Performed by Osmani Lemus MD at [facility] INJECTION BLOCK EPIDURAL STEROID LUMBAR/SACRAL Left L 4, 5 NR Left 09/06/2020 Performed by Osmani Lemus MD at [facility] INJECTION CAUDAL EPIDURAL WITH CATHETER, STEROID N/A 03/01/2020 Performed by Osmani Lemus MD at [facility] INJECTION MEDIAL BRANCH NERVE BLOCK left L 3/4, 4/5, 5/1 Left 04/19/2020 Performed by Osmani Lemus MD at [facility] INJECTION MEDIAL BRANCH NERVE BLOCK Left L 3/4, 4/5, 5/1 Left 03/29/2020 Performed by Osmani Lemus MD at [facility] MICRO DISCECTOMY LUMBAR WITH HEMILAMINECTOMY AND FORAMINOTOMY L4-5 Left 07/08/2023 Performed by Candis Davis MD at [facility] RADIO FREQUENCY ABLATION Left L 3/4, 4/5, 5/1 Left 07/12/2020 Performed by Osmani Lemus MD at [facility] RADIOFREQUENCY ABLATION SPINAL Left L 3/4, 4/5, 5/1 Left 02/28/2021 Performed by Osmani Leums MD at [facility] RADIOFREQUENCY ABLATION SPINAL left L 3/4, 4/,5, 5/1 Left 10/24/2021 Performed by Osmani Lemus MD at [facility] RADIOFREQUENCY ABLATION SPINAL Left L 3/4, 4/5, 5/1 Left 05/15/2022 Performed by Osmani Lemus MD at [facility] RADIOFREQUENCY ABLATION SPINAL Left L 3/4,4/5, 5/1 Left 11/13/2022 Performed by Osmani Lemus MD at [facility] Family History Problem Relation Age of Onset Back Problems Mother Asthma Mother Parkinsonism Father Asthma Maternal Grandmother Diabetes Maternal Grandfather Heart attack Maternal great-grandfather Anesthesia problems Neg Hx Bleeding Disorder Neg Hx Clotting disorder Neg Hx Breast cancer Neg Hx Ovarian cancer Neg Hx Colon cancer Neg Hx Stroke Neg Hx Social History Socioeconomic History Marital status: Single Spouse name: Not on file Number of children: Not on file Years of education: Not on file Highest education level: Not on file Occupational History Not on file Tobacco Use Smoking status: Never Smokeless tobacco: Never Vaping Use Vaping status: Never Used Substance and Sexual Activity Alcohol use: Never Drug use: Never Sexual activity: Defer Other Topics Concern Caffeine Use No Social History Narrative Student at [employer]. Will stay with parents to recuperate after surgery. Social Drivers of Health Financial Resource Strain: Low Risk (05/17/2024) Received from [facility] Overall Financial Resource Strain (CARDIA) Difficulty of Paying Living Expenses: Not hard at all Food Insecurity: No Food Insecurity (07/06/2024) Hunger Screening Food Insecurity - Worry: Never True Food Insecurity - Inability: Never True Transportation Needs: No Transportation Needs (05/17/2024) Received from [facility] PRAPARE - Transportation Lack of Transportation (Medical): No Lack of Transportation (Non-Medical): No Physical Activity: Insufficiently Active (05/17/2024) Received from [facility] Exercise Vital Sign Days of Exercise per Week: 3 days Minutes of Exercise per Session: 30 min Stress: No Stress Concern Present (05/17/2024) Received from [facility] [employer] [place] of Occupational Health - Occupational Stress Questionnaire Feeling of Stress : Only a little Social Connections: Moderately Isolated (05/17/2024) Received from [facility] Social Connection and Isolation Panel [NHANES] Frequency of Communication with Friends and Family: More than three times a week Frequency of Social Gatherings with Friends and Family: More than three times a week Attends Episcopal Services: Never Active Member of Clubs or Organizations: Yes Attends Club or Organization Meetings: More than 4 times per year Marital Status: Never Interpersonal Safety: Not At Risk (05/02/2023) Received from [facility], [facility] Humiliation, Afraid, Rape, and Kick questionnaire Fear of Current or Ex-Partner: No Emotionally Abused: No Physically Abused: No Sexually Abused: No Housing Instability: Low Risk (05/17/2024) Received from [facility] Housing Stability Vital Sign Unable to Pay for Housing in the Last Year: No Number of Times Moved in the Last Year: 0 Homeless in the Last Year: No Review of Systems Review of Systems Constitutional: Negative. HENT: Negative. Eyes: Negative. Cardiovascular: Positive for chest pain and palpitations. Respiratory: Negative. Endocrine: Negative. Hematologic/Lymphatic: Negative. Skin: Negative. Musculoskeletal: Negative. Gastrointestinal: Negative. Genitourinary: Negative. Neurological: Positive for dizziness, headaches, light-headedness and loss of balance. Psychiatric/Behavioral: Negative. Allergic/Immunologic: Positive for environmental allergies. Vascular: Negative. CARDIOVASCULAR: Please review HPI. Physical Examination General appearance: Alert, oriented and cooperative. In no acute distress. Skin: Warm and dry to touch. Head: Normocephalic, without obvious abnormality, atraumatic. Ears, Nose, Mouth, Throat: Throat clear without erythema or exudate. Dentition intact. Eyes: Conjunctivae unremarkable, EOM intact. Neck: No JVD, No carotid bruit. Neck supple, trachea midline. Respiratory: Clear to auscultation bilaterally, no use of accessory muscles. Cardiovascular: RRR with normal S1 and S2 with no murmurs. Gastrointestinal: Soft, non-tender. Bowel sounds normal. Musculoskeletal: No peripheral edema. Neurologic: Oriented to time, person and place, affect appropriate. No focal/major motor defects noted. Psychiatric: Appropriate mood, memory and judgement. VITAL SIGNS: BP 96/68 (BP Site: Left Arm, BP Postition: Sitting) Pulse 72 Ht 154.9 cm (5' 1 ) Wt 64.7 kg (142 lb 9.6 oz) SpO2 100% BMI 26.94 kg/m Orders Placed or Reconciled This Encounter Medications adapalene (DIFFERIN) 0.3 % gel Sig: Apply topically nightly. metoprolol tartrate (LOPRESSOR) 25 mg tablet Sig: Take 1 tablet (25 mg total) by mouth in the morning and 1 tablet (25 mg total) before bedtime. There are no discontinued medications. IMPRESSIONS/PLAN 1. PVC (premature ventricular contraction) - [facility] - [place], [place] 2. Dizziness - [facility] - [place], [place] -- I do not think her PVCs are symptomatic, she did have 37 symptomatic event the correlated with sinus rhythm for the most part, her blood pressure is soft and her dizziness is mostly orthostatic, this may exacerbate her symptoms -- her PVCs are unifocal with a low burden, we will get an echocardiogram for structural evaluation -- magnesium 400 mg nightly -- educated about triggers, importance of good hydration, avoiding caffeine and alcohol and increasing her salt intake TODAYS ORDERS No orders of the defined types were placed in this encounter. FOLLOW UP No follow-ups on file. PCP: KIMBERLY RANDOLPH DO Referring Physician: Ilana Cadet, JOURNEYMAN TOOL AND DIE MAKER-SHANK INSPECTOR [address] [place] [address] documented in this encounter [facility] 07-06-2024 Instructions Jonatan Padilla MD - 07/06/2024 1:30 PM EST Stop metoprolol and take 400 mg magnesium nightly Echocardiogram documented in this encounter [facility] 07-05-2024 Miscellaneous Notes Left message for patient to remind them to bring their most current medication list with them to their appointment. documented in this encounter [facility] 07-05-2024 Telephone encounter Note Left message for patient to remind them to bring their most current medication list with them to their appointment. [facility] 05-30-2024 Telephone encounter Note Please see other TE [facility] 05-30-2024 Miscellaneous Notes Please see other TE Mom called because pt is very nervous. She received a call from cardiology for an appt. And got a call from the pharmacy for her new rx but pt wasn't aware she was going to see Cardiology at all. Pt would like a call from Ilana explaining things to her. documented in this encounter [facility] 05-30-2024 Telephone encounter Note Mom called because pt is very nervous. She received a call from cardiology for an appt. And got a call from the pharmacy for her new rx but pt wasn't aware she was going to see Cardiology at all. Pt would like a call from Ilana explaining things to her. [facility] 05-29-2024 Telephone encounter Note Pt turned in the holter monitor last Wednesday and hasn't heard of any results [phone] [facility] 05-29-2024 Miscellaneous Notes Pt turned in the holter monitor last Wednesday and hasn't heard of any results [phone] documented in this encounter [facility] 05-17-2024 History of Presen t illness Narrative Images from the original note were not included. Aranza Doyle is a 23 y.o. female presents with chief complaint of Dizziness HPI: Presents to the office today to discuss dizziness and headaches which have been occurring for 2 years. She will stand up start feeling dizzy, have tunnel vision. Sometimes will feel dizzy after exercising. Is feeling nauseated as well. Feels scatter brained. She did try to increase oral intake of fluids, didn't feel like it helped. Will get sharp headaches when she stands up sometimes. Last for a few seconds. Dizziness SUBJECTIVE: MEDICATIONS: ALLERGIES Current Outpatient Medications Medication Instructions adapalene (Differin) 0.3 % gel USE 1 APPLICATION TOPICALLY EVERY NIGHT AT BEDTIME albuterol HFA 90 mcg/act inhaler 2 puffs, Every 4 hours PRN azithromycin (Zithromax) 500 MG tablet Day 1: Take 2 tablets PO onetime dose; Day 2,3,4: Take 1 tablet daily fluconazole (Diflucan) 100 MG tablet Take 1 tab by mouth today. Repeat in 48 hours. Fluticasone-Salmeterol (Advair Diskus) 250-50 MCG/ACT aerosol powder 1 puff, Inhalation, 2 times daily norgestimate-ethinyl estradiol (Tri-Sprintec) 0.18/0.215/0.25 MG-35 MCG tablet 1 tablet, Oral, Every 24 hours Allergies Allergen Reactions Seasonal Ic [Octacosanol] Runny nose Gluten Meal Rash PAST MEDICAL HISTORY: SOCIAL HISTORY SURGICAL HISTORY: Past Medical History: Diagnosis Date Acute left otitis media Asthma (CMS/HCC) Chronic cough Reactive airways dysfunction syndrome, unspecified asthma severity, uncomplicated (CMS/HCC) stenosis L4-5, right L5-S1 Strep throat Tonsillitis Social History Tobacco Use Smoking status: Never Smokeless tobacco: Never Substance Use Topics Alcohol use: Yes Alcohol/week: 2.0 standard drinks of alcohol Types: 2 Standard drinks or equivalent per week Comment: caffeine: occasional Drug use: Never Past Surgical History: Procedure Laterality Date BACK SURGERY 06/2023 EPIDURAL BLOCK INJECTION 08/2020 L45 epidural EPIDURAL BLOCK INJECTION 01/01/2021 L4-5 block injection IR ABLATION 02/28/2021 ablation L 3/4, 4/5, 5/1 LUMBAR MEDIAL BRANCH BLOCK Left 03/29/2020 left L2-3-4 5 medial branch block LUMBAR MEDIAL BRANCH BLOCK Left 04/19/2020 Left L2,3,4,5 medial branch block IL INJ LUMBAR/SACRAL,W/WO CNTRST 02/2020 caudal epidural SPINE SURGERY 07/08 REVIEW OF SYMPTOMS: Review of Systems Constitutional: Negative. HENT: Negative. Eyes: Negative. Respiratory: Negative. Cardiovascular: Negative. Gastrointestinal: Negative. Genitourinary: Negative. Musculoskeletal: Negative. Skin: Negative. Neurological: Positive for dizziness. Psychiatric/Behavioral: Negative. All other systems reviewed and are negative. Hematological: Negative. Endocrine: Negative. Allergic/Immunologic: Negative. OBJECTIVE: Vitals: 05/17/24 1540 BP: 118/80 Pulse: Resp: SpO2: Physical Exam Vitals reviewed. Constitutional: Appearance: Normal appearance. HENT: Head: Normocephalic and atraumatic. Right Ear: Tympanic membrane normal. Left Ear: Tympanic membrane normal. Nose: Nose normal. Mouth/Throat: Mouth: Mucous membranes are moist. Eyes: Extraocular Movements: Extraocular movements intact. Pupils: Pupils are equal, round, and reactive to light. Cardiovascular: Rate and Rhythm: Normal rate and regular rhythm. Pulses: Normal pulses. Heart sounds: Normal heart sounds. Pulmonary: Effort: Pulmonary effort is normal. Breath sounds: Normal breath sounds. Musculoskeletal: Cervical back: Normal range of motion and neck supple. Right lower leg: No edema. Left lower leg: No edema. Skin: General: Skin is warm and dry. Capillary Refill: Capillary refill takes less than 2 seconds. Findings: No rash. Neurological: General: No focal deficit present. Mental Status: She is alert and oriented to person, place, and time. ASSESSMENT AND PLAN: Assessment/Plan Diagnoses and all orders for this visit: Dizziness - CBC and differential; Future - Comprehensive metabolic panel; Future - TSH W/REFLEX TO FT4; Future - Holter monitor; Future -Check labs and obtain holter. Concern for POTS or NCS, encouraged to drink plenty of fluids, add a gatorade a day, liberal salt intake. Follow up after testing. documented in this encounter [facility] 08-06-2023 History of Presen t illness Narrative Images from the original note were not included. [facility] [address] [place] [address], [address] [place] [address] * FOLLOW-UP NOTE ? 08/06/2023 Patient: Aranza Doyle 2000 [id number] Physician: Candis Davis MD, FACS CHIEF COMPLAINT Follow-up after left-sided L4-5 diskectomy HISTORY OF PRESENT ILLNESS Aranza Doyle is a 22 y.o. female. Not having any significant symptoms down the legs. She did have a footdrop before surgery like she has 1 now. ALLERGIES No Known Allergies VITAL SIGNS Ht 154.9 cm (5' 1 ) Wt 64 kg (141 lb) LMP 07/07/2023 BMI 26.64 kg/m PHYSICAL EXAMINATION There has absolutely no signs of any weakness. MRI / IMAGES No new images IMPRESSSION / PLAN At this point she can start returning to her normal exercise activity. We will see her back as needed. Electronically signed by: Candis Davis MD, FACS This note was created with the assistance of a speech recognition program with the goal of generating a timely record of the patient encounter. Inadvertent computerized metal spinner errors related to syntax, spelling, homophones, and/or inaudibility may be present. documented in this encounter [facility] 08-06-2023 Instructions Kenia Westbrook CMA - 08/06/2023 1:40 PM EST Patient was seen today by Dr. Davis Patient is to follow up as needed sp documented in this encounter [facility] 07-22-2023 History of Presen t illness Narrative [facility] [address] [address] Suture/Staple Removal/Wound Date: July 22, 2023 Patient: Aranza Doyle Physician: Dr. Davis Procedure: MICRO DISCECTOMY LUMBAR WITH HEMILAMINECTOMY AND FORAMINOTOMY L4-5 Past Surgical History: Procedure Laterality Date INJECTION BLOCK EPIDURAL STEROID LUMBAR/SACRAL L 4/5 ETHAN N/A 01/24/2021 Performed by Osmani Lemus MD at [facility] INJECTION BLOCK EPIDURAL STEROID LUMBAR/SACRAL Left L 4, 5 NR Left 09/06/2020 Performed by Osmani Lemus MD at [facility] INJECTION CAUDAL EPIDURAL WITH CATHETER, STEROID N/A 03/01/2020 Performed by Osmani Lemus MD at [facility] INJECTION MEDIAL BRANCH NERVE BLOCK left L 3/4, 4/5, 5/1 Left 04/19/2020 Performed by Osmani Lemus MD at [facility] INJECTION MEDIAL BRANCH NERVE BLOCK Left L 3/4, 4/5, 5/1 Left 03/29/2020 Performed by Osmani Lemus MD at [facility] MICRO DISCECTOMY LUMBAR WITH HEMILAMINECTOMY AND FORAMINOTOMY L4-5 Left 07/08/2023 Performed by Candis Davis MD at [facility] RADIO FREQUENCY ABLATION Left L 3/4, 4/5, 5/1 Left 07/12/2020 Performed by Osmani Lemus MD at [facility] RADIOFREQUENCY ABLATION SPINAL Left L 3/4, 4/5, 5/1 Left 02/28/2021 Performed by Osmani Lemus MD at [facility] RADIOFREQUENCY ABLATION SPINAL left L 3/4, 4/,5, 5/1 Left 10/24/2021 Performed by Osmani Lemus MD at [facility] RADIOFREQUENCY ABLATION SPINAL Left L 3/4, 4/5, 5/1 Left 05/15/2022 Performed by Osmani Lemus MD at [facility] RADIOFREQUENCY ABLATION SPINAL Left L 3/4,4/5, 5/1 Left 11/13/2022 Performed by Osmani Lemus MD at [facility] Date of Procedure: 07/08/23 Reason for Appointment: staple removal Post-Op Fever?: No Incisional Drainage?: No Skin Edges Approximated?: Yes Unusual Redness?: No Unusual Swelling?: No Sutures/Katie Removed?: Yes-staple Steri Strips Applied?: No Use of Pain Medication: ibuprofen as needed Effective for Pain Relief?: Yes Comments: Aranza ambulates into office accompanied by mother. No concerns at this time. Dry dressing removed from incision. Incision clean, dry and intact. [place] removed without difficulty. Incisional hygiene discussed with patient. Patient voiced understanding. Patient instructed to call the office with any further questions or concerns. Patient to follow-up with provider as scheduled. Current Concerns with Incision or Symptoms?: No It is best to reposition often to reduce the amount of pressure on the incision. documented in this encounter [employer] 07-22-2023 History of Presen t illness Narrative [facility] Outpatient Physical Therapy Evaluation Date: 07/22/2023 Patient: Aranza Doyle : 2000 CSN #: [id number] Referring Physician: Candis Davis MD Medical Diagnosis: Herniated lumbar intervertebral disc M51.26, Spinal stenosis, M48.061 Treatment Diagnosis: s/p microdiscectomy and hemilaminectomy Onset Date: 07/08/23 PT Insurance Information: [employer] Total # of Visits Approved: 12 Total # of Visits to Date: 1 No Show: 0 Canceled Appointment: 0 Subjective Subjective: Patient reports a microdiscectomy and laminectomy of L4-5 on July 08, 2023. She reports she was getting radicular pain to her foot prior to surgery and had drop foot. She denies radicular pain and denies drop foot since the surgery. She reports lumbar spine soreness that ranges from 4/10 at best to 5/10 at worst. Additional Pertinent Hx: Asthma Observations: General Observations Description: Bandage covering katie. [place] to be removed today Palpation: Lumbar Spine Palpation: Tenderness to lumbar spine paraspinals Ambulation/Gait (if applicable): Ambulation WB Status: FWB Ambulation Surface: Level tile Device: No Device Assistance: Independent Gait Deviations: None Balance Screen: Objective Strength RLE R Hip Flexion: 4+/5 R Hip Extension: NT R Hip ABduction: 5/5 R Knee Flexion: 5/5 R Knee Extension: 5/5 R Ankle Dorsiflexion: 5/5 Strength LLE L Hip Flexion: 4/5 L Hip Extension: NT L Hip ABduction: 4/5 L Knee Flexion: 5/5 L Knee Extension: 4+/5 L Ankle Dorsiflexion: 4+/5 Exercises: Exercise 1: HEP: Seated sciatic nerve glide, progressive ambulation, supine PPT 10 sec x10 Functional Outcome Measures Pain Intensity: C. The pain is moderate at the moment Personal Care (Washing,Dressing, etc.): B. I can look after myself normally, but it causes me extra pain Walking: B. Pain prevents me from walking more than one mile Sitting: A. I can sit in any chair as long as I like Standing: B. I can stand as long as I want but it gives me extra pain Sleeping: B. My sleep is occasionally disturbed by pain Social Life : A. My social life is normal and causes me no extra pain Traveling : B. I can travel anywhere but it gives me extra pain Owsestry Disability Total Scores: 12 Assessment Body Structures, Functions, Activity Limitations Requiring Skilled Therapeutic Intervention: Decreased functional mobility , Decreased ADL status, Decreased body mechanics, Decreased ROM, Decreased strength, Decreased endurance, Decreased balance, Increased pain, Decreased posture Assessment: The patient is a 22 y.o. female who reports LBP with radicular pain when injuring her back weight lifting in July of 2019. She underwent a microdiscectomy of L4-5 and hemilaminectomy on 07/08/23. On examination she demonstrates decreased L quads and tibialis anterior strength, positive seated nerve tension testing, and tenderness to palpation of bilateral lumbar spine paraspinals. She would benefit from aquatic exercise with a progression to land based exercise to improve core and LE strength to return to normal function. Therapy Prognosis: Good Decision Making: Low Complexity Patient Education Patient Education: PT POC, HEP Pt verbalized/demonstrated good understanding: [X] Yes [] No, pt required further clarification. Goals Short Term Goals Time Frame for Short Term Goals: 3 weeks Short Term Goal 1: Patient will be initiated with a HEP Short Term Goal 2: Patient will tolerate 30 minutes of aquatic exercise to improve core and LE strength/endurance in an unloaded environment. Intermediate Goals Time Frame for Intermediate Goals : 6 weeks Intermediate Goal 1: Patient will be independent and compliant with a HEP Electronics Manufacturer Goal 2: Patient will improve L LE strength to 5/5 in all major joints and planes Electronics Manufacturer Goal 3: Patient will no longer report back pain with knee extension ROM. Electronics Manufacturer Goal 4: Patient will improve OSWESTRY score to <16% disability Patient Goals : Improve mobility Minutes Tracking: Time In: 1030 Time Out: 1108 Minutes: 38 Timed Code Treatment Minutes: 36 Minutes Paul Viera PT, DPT 07/22/2023 documented in this encounter [facility] 02-09-2022 Evaluation note Encounter Date Diagnosis Assessment Notes Jan, Irritable bowel syndrome (ICD-10 - K58.9) Jan, Dyspepsia (ICD-10 - K30) Jan, Gluten intolerance (ICD-10 - K90.0) Continue gluten free diet [facility] Other 11-05-2021 Evaluation note* Encounter Date Diagnosis Assessment Notes Treatment Notes Treatment Clinical Notes May, Dyspepsia (ICD-10 - K30) [facility] Other 09-29-2021 Evaluation note* Encounter Date Diagnosis Assessment Notes Treatment Notes Treatment Clinical Notes Mar, Abdominal pain (ICD-10 - R10.9) Abdominal pain: adult home care material was printed Mar, Change in bowel habits (ICD-10 - R19.4) Mar, Weight loss (ICD-10 - R63.4) [facility] Other Evaluation note* Diagnosis Dizziness- Primary Dizziness and giddiness [facility] Diagnosis S/P lumbar discectomy- Primary Other postprocedural status [facility] Diagnosis Herniated lumbar intervertebral disc- Primary Displacement of lumbar intervertebral disc without myelopathy [facility] Diagnosis PVC (premature ventricular contraction)- Primary Other premature beats Dizziness Dizziness and giddiness [facility] Diagnosis Well woman exam with routine gynecological exam Routine gynecological examination Encounter for control pills maintenance Surveillance of previously prescribed contraceptive pill [facility] N[facility]ative - Reported* Type Description Date Medical History [facility] Other InstructionsNot on filedocumented in this encounter [facility] filedocumented in this encounter [facility]ructionsNot on filedocumented in this encounter [facility]Reason for visit NarrativePATIENT HERE AT THE REQUEST OF DR LAGUNA FOR EVALUATION & TREATMENT OF ABDOMINAL PAIN.[facility] Other History of Present Illness * Pilar Villafuerte MD - 08/22/2019 5:32 PM EST CONSULT NOTE Patient Name: Aranza Doyle Encounter Date: MR #: [id number] : 2000 Physicians: Jose David Sadler CNP (Family); Jose David Sadler CNP (Referring) Chief Complaint/Reason for Visit: 2-week history of left lower extremity radiculopathy History of Present Illness: Aranza Doyle is a 18 y.o. female who is seen for low back pain withleft lower extremity radiculopathy that occurred while lifting 2 weeks ago. On August 07 during lifting session at the gym for volleyball she is experience pain in the back and rating down the left lower extremity. Standing helps. Sitting or laying down makes her pain worse. She describes pain and numbness. It goes down into the upper leg. No weakness is present. History: Past medical history is none Past surgical history is none Family history is none Social history: She is a jovon in high school. She does not smoke or drink. Allergy Information: I have reviewed the patient's allergies. Patient has no known allergies. Home Medications: Outpatient Medications as of 08/22/2019 Medication Sig Tri-Sprintec, 28, 0.18/0.215/0.25 mg-35 mcg (28) per tablet Take 1 Tabminder by mouth daily . Review of Systems: A twelve system ROS was reviewed with the patient today and is negative except for the symptoms noted in the HPI. These systems include constitutional, cardiovascular, respiratory, musculoskeletal, neurological, eyes, integumentary, allergic, hematologic, and gastrointestinal. Physical Examination: Vital Signs: Ht 5' 1 Wt 68 kg (150 lb) BMI 28.34 kg/m Neuro exam: Awake and alert, oriented to name, place, and time. Gaze conjugate, EOMI. PERRL @ 3mm. Speech clear and appropriate. Face symmetrical. Tongue midline. Motor strength 5/5 to all extremities. No drift noted. Sensation intact. CN examination 2-12 is individually tested and is intact Reflexes: 2+/4 biceps/brachioradialis/patellar, downgoing Babinski's, negative Salazar's, no clonusnoted Cerebellar signs: No dysmetria, no dysdiadochokinesis, symmetric finger to nose, gait deferred Laboratory and Additional Data Reviewed: I personally reviewed the films and the reports. MRI scan of her lumbar spine shows some mild degenerative disease at L4-5 and a small midline disc herniation with some left foraminal stenosis at both L4-5 and L5-S1. Diagnosis: 1. Paresthesia of lower extremity Assessment and Plan: The patient does have some paresthesias in an L4-5 distribution I think the L4-5 level is likely symptomatic. I would recommend exhausting further conservative measures I think she would be a good candidate for an L4-5 left-sided epidural steroid injection but I would continue currently with a course of anti-inflammatories, activity modification as well as physical therapy. If her pain worsens we could then consider a epidural at L4-5. They will let me know if the symptoms persist despite further conservative measures. No immediate surgical options are recommended. Pilar Villafuerte MD [facility] [address] [place] [address] [place] [address] Office [phone] documented in this encounter* Pilar Villafuerte MD - 05/31/2020 5:22 PM EST CONSULT NOTE Patient Name: Aranza Doyle Encounter Date: MR #: [id number] : 2000 Physicians: Jose David Sadler CNP (Family); No ref. provider found (Referring) Chief Complaint/Reason for Visit: Chronic low back pain with left greater than right radiculopathy History of Present Illness: Aranza Doyle is a 19 y.o. female earlier this year with similar symptoms she has a stabbing pain in the back and going down both legs somewhat worse on the left side. She is tried physical therapy and has had injections. She recently had a median branch block that seemed to help her symptoms between 10 and 20 days. She has been offered a rhizotomy. She has no tension sign. She does have pain in her low back rating down her left lower extremity but she also has similar pain on the right side. History: Past Medical History: Diagnosis Date Asthma Left leg pain Numbness and tingling of left leg No past surgical history on file. No family history on file. Social History Socioeconomic History Marital status: Single Spouse name: Not on file Number of children: Not on file Years of education: Not on file Highest education level: Not on file Occupational History Not on file Social Needs Financial resource strain: Not on file Food insecurity Worry: Not on file Inability: Not on file Transportation needs Medical: Not on file Non-medical: Not on file Tobacco Use Smoking status: Never Smoker Smokeless tobacco: Never Used Substance and Sexual Activity Alcohol use: Never Frequency: Never Drug use: Never Sexual activity: Not on file Lifestyle Physical activity Days per week: Not on file Minutes per session: Not on file Stress: Not on file Relationships Social connections Talks on phone: Not on file Gets together: Not on file Attends roman catholic service: Not on file Active member of club or organization: Not on file Attends meetings of clubs or organizations: Not on file Relationship status: Not on file Other Topics Concern Not on file Social History Narrative Not on file Allergy Information: I have reviewed the patient's allergies. Patient has no known allergies. Home Medications: Outpatient Medications as of 05/31/2020 Medication Sig Tri-Sprintec, 28, 0.18/0.215/0.25 mg-35 mcg (28) per tablet Take 1 Tabminder by mouth daily . Review of Systems: A twelve system ROS was reviewed with the patient today and is negative except for the symptoms noted in the HPI. These systems include constitutional, cardiovascular, respiratory, musculoskeletal, neurological, eyes, integumentary, allergic, hematologic, and gastrointestinal. Physical Examination: Vital Signs: Ht 5' 1 Wt 68 kg (150 lb) BMI 28.34 kg/m Neuro exam: Awake and alert, oriented to name, place, and time. Gaze conjugate, EOMI. PERRL @ 3mm. Speech clear and appropriate. Face symmetrical. Tongue midline. Motor strength 5/5 to all extremities. No drift noted. Sensation intact. CN examination 2-12 is individually tested and is intact Lumbar exam: Motor strength 5/5 bilateral hip flexors/knee flexion/knee extension/dorsiflexion/plantarflexion/EHL. Sensation intact and equal throughout to light touch and pain Reflexes: 2+/4 biceps/brachioradialis/patellar, downgoing Babinski's, negative Salazar's, no clonusnoted Straight leg raising sign is negative Laboratory and Additional Data Reviewed: I personally reviewed the films and the reports. [facility] shows a L4-5 degenerative disc eccentric to the left with some effacement of the left L4-5 nerve root complex. She also has some advanced facet arthropathy for age with some foraminal stenosis on the right Diagnosis: L4-5 facet arthropathy Assessment and Plan: When I first looked at her films I felt we would likely be offering her microdiscectomy but her history worries me that she has bilateral leg pain worse on the left side if I combine this with the fact that she has facet arthropathy and she actually improved with a medial branch block I think her facets may be in play and I am somewhat worried about performing a unilateral discectomy at L4-5 and her age since she has contralateral pain and she does not have a tension sign. My recommendation would be a facet rhizotomy to see if we can temporize the pain. All this is tryingto exhaust conservative measures so young healthy woman can improve with conservative measures. If s urgkatie is offered it would least be a bilateral hemilaminotomy and I think that would likely bridgeher fairly quickly to advanced facet arthropathy may even resulting in the need for a fusion at a young age. For that reason she lacks any deficit or tension signs I would try to exhaust all conservative measures before considering a microdiscectomy bilaterally. If she fails a rhizotomy and would like to consider surgery I would be more than happy to reevaluate her in the future. Pilar Villafuerte MD [facility] [address] [place] [address] Office [phone] documented in this encounter Assessments Diagnosis Paresthesia of lower extremity Disturbance of skin sensation Diagnosis Paresthesia of lower extremity- Primary Disturbance of skin sensation Advance Directives Documents on File Type Date Recorded Patient Cistern Room Operator Expl anation Advance Directives and Living Will Documents on File Type Date Recorded Patient Cistern Room Operator Expl anation ACP-Advance Directive ACP-Power of Talent Development Analyst Latest Code Status on File Code Status Date Activated Date Inactivated Comments Full Code 07/08/2023 8:38 AM 07/08/2023 4:42 PM Date Activated Date Inactivated Comments 07/08/2023 8:38 AM 07/08/2023 4:42 PM Date Activated Date Inactivated Comments 07/08/2023 8:38 AM 07/08/2023 4:42 PM Summary Purpose Family History No Family History Records FoundNo Family History Records FoundNo Family History Records FoundNo Family History Records FoundNo Family History Records FoundNo Family History Records FoundNo Family History Records FoundNo Family History Records FoundNo Family History Records Found Reason for Referral Reason evaluate and treat o r food allergy testing Diagnosis 1 Gluten intolerance ( K90.0) Referral Organization [facility] Referring Provider First Name Arjun Referring Provider Last Name Talisha Referring Provider Specialty Gastroenter ology Referred Organization Unknown Facility Referred Provider Deandre Hess Referred Provider Specialty Allergy/Immu nology Referral Priority Routine Additional Source Comments Reason for Visit (unrecogniz ed section and content) Reason Comments Back Pain Leg Pain left Status Reason Specialty Diagnoses / Procedures Referred By Contact Referred To Contact Closed Neurosurgery Diagnoses Paresthesia of lower extremity Jose David Sadler, SHANK INSPECTOR [address] [place] [address] Pilar Villafuerte MD [address] [facility] [address] [place] [address] Reason Comments Follow-up Reason Comments Dizziness Reason Comments Suture / Staple Removal Reason Comments Follow-up 4 WEEK POST OP HEMIL AMINECTOMY WITH DISCECTOMY AND FORAMINOTOMY LEFT L4-5 Reason Comments New Patient HOME COORDINATOR REFERRAL ILANA THOMAS PVC'S, DIZZINESS, HM NOMS, LABS PCP, SCHED W/PT Specialty Diagnoses / Procedures Referred By Contac t Referred To Contact Cardiology Diagnoses PVC (premature ventricular contraction) Dizziness Procedures [place] OFFICE OUTPATIENT VISIT 60-74 MINS HIGH MDM [id number] (SNOMED CT) - AMB REFERRAL TO CARDIOLOGY Ilana Cadet, JOURNEYMAN TOOL AND DIE MAKER-SHANK INSPECTOR [address] [place] [address] Phone: tel: fax: Kaelyn Velazquez MD [address] [place] [address] Phone: tel: fax: Referral ID Status Reason Start Date Expiration Date V isits Requested Visits Authorized [id number] Pending Review 05/30/2024 11/26/2024 1 1 Reason Comments [facility] Visit INFORMATION SOURCE (unrecogn ized section and content) DATE CREATED AUTHOR 12/08/2019 [facility] DATE CREATED AUTHOR AUTHOR'S ORGANIZ ATION 05/31/2020 [facility] DATE CREATED AUTHOR AUTHOR'S ORGANIZ ATION 06/04/2020 [facility] DATE CREATED AUTHOR AUTHOR'S ORGANIZ ATION 06/20/2020 [facility] DATE CREATED AUTHOR AUTHOR'S ORGANIZ ATION 08/19/2021 [facility] DATE CREATED AUTHOR AUTHOR'S ORGANIZ ATION 08/08/2023 [facility] DATE CREATED AUTHOR AUTHOR'S ORGANIZ ATION 08/18/2023 [facility] DATE CREATED AUTHOR AUTHOR'S ORGANIZ ATION 05/19/2024 [facility] EPIC DATE CREATED AUTHOR AUTHOR'S ORGANIZ ATION 07/09/2024 [facility] Care Teams (unrecognized sec tion and content) Dexigraph Operator Relationship Specialty Start Date End Date Ana Laguna [address] [place] [address] PCP - General Family Medicine 03/24/17 Dexigraph Operator Relationship Specialty Start Date End Date Ana Laguna [address] [place] [address] PCP - General Family Medicine 03/24/17 Dexigraph Operator Relationship Specialty Start Date End Date Jennifer Pastrana MD [address] [place] [address] PCP - General Family Medicine 11/29/23 Cyndy Perdomo PA [address] [place] [address] [place] [address] PCP - [employer] 04/25/16 07/25/99 Lizeth Emanuel NP [address] [place], [place] [id number] Nurse Practitioner Family Medicine 11/29/23 Dexigraph Operator Relationship Specialty Start Date End Date Jennifer Pastrana MD [address] [place] [facility] [place] [address] PCP - General Family Medicine 11/29/23 Cyndy Perdomo PA [address] [place] [address] [place] [address] PCP - [employer] 04/25/16 07/25/99 Lizeth Emanuel NP [address] [facility] [place] [address] Nurse Practitioner Family Medicine 11/29/23 Dexigraph Operator Relationship Specialty Start Date End Date Jennifer Pastrana MD [facility] [facility] [place] [address] PCP - General Family Medicine 11/29/23 Cyndy Perdomo PA [address] [place] [address] [place] [address] PCP - [employer] Commercial 04/25/16 07/25/99 Lizeth Emanuel NP [address] [facility] [place] [address] Nurse Practitioner Family Medicine 11/29/23 Dexigraph Operator Relationship Specialty Start Date End Date Kimberly Randolph DO [address] [place] [facility] [place] [address] PCP - General Family Medicine 07/01/23 Dexigraph Operator Relationship Specialty Start Date End Date Kimberly Randolph DO [address] [place] [facility] [place] [address] PCP - General Family Medicine 07/01/23 Dexigraph Operator Relationship Specialty Start Date End Date Kimberly RandolphDO [address] [facility] [place] [address] PCP - General Family Medicine 07/01/23 Dexigraph Operator Relationship Specialty Start Date End Date RicoDomchanning BoydDO [address] [facility] [place] [address] PCP - General Family Medicine 07/01/23 Dexigraph Operator Relationship Specialty Start Date End Date Rico Kimberly BoydDO [address] [facility] [place] [address] PCP - General Family Medicine 07/01/23 Dexigraph Operator Relationship Specialty Start Date End Date Jennifer Pastrana MD [address] [facility] [place] [address] PCP - General Family Medicine 11/29/23 Cyndy Perdomo PA [facility] [place] [address] PCP - Medical [employer] Commercial 04/25/16 07/25/99 Lizeth Emanuel NP [address] [facility] [place] [address] Nurse Practitioner Family Medicine 11/29/23 Dexigraph Operator Relationship Specialty Start Date End Date Jennifer Pastrana MD [address] [facility] [place] [address] PCP - General Family Medicine 11/29/23 Cyndy Perdomo PA [address] [place] [address] PCP - [employer] Commercial 04/25/16 07/25/99 Lizeth Emanuel NP [address] [place] [address] Nurse Practitioner Family Medicine 11/29/23 FOR RECORDS PERTAINING TO PATIENTS WHO ARE OR HAVE BEEN ENROLLED IN A CHEMICAL DEPENDENCY/SUBSTANCEABUSE PROGRAM, SOME INFORMATION MAY BE OMITTED. This clinical summary was aggregated from multiple sources. Caution should be exercised in using it in the provision of clinical care. This summary normalizes information from multiple sources, and as a consequence, information in this document may materially change the coding, format and clinical context of patient data. In addition, data may be omitted in some cases. CLINICAL DECISIONS SHOULD BE BASED ON THE PRIMARY CLINICAL RECORDS. [facility]. provides no warranty or guarantee of the accuracy or completeness of information in this document.
== END 2024-12-20 19:55 | disposition home or self-care (01) ==
LOC: LAB 19:54
PROVIDERS: Visit Provider Physician Assistant
DX: Z01.419 Encounter for gynecological examination (general) (routine) without abnormal findings (principal)
CPT/HCPCS: 88175